=== PATIENT | male | born 1970 | race Two or more races ===

== ENCOUNTER → 2019-11-24 | Emergency (ER) | payer MEDICAID ==
[~2019-11-24] VITALS: Ht 167.6 cm; Wt 80.0 kg
[~2019-11-24] MED LIST: LIDOCAINE HCL 1% 20ML VIAL (Pyxis) INJ ONE; SODIUM BICARBONATE 4% (2.4MEQ) 5ML VIAL IV ONE
[2019-11-24 14:00] LABS: BASOPHILS % 0.6 % (0.0-2.0); EOSINOPHILS % 2.3 % (0.0-5.0); HEMATOCRIT. 29.5 % (42.0-52.0); HEMOGLOBIN. 10.3 g/dL (14.0-18.0); LYMPHOCYTES % 13.6 % (20.0-50.0); MEAN CORPUSCULAR HEMOGLOBIN 31.6 pg (28.0-32.0); MEAN CORPUSCULAR VOLUME 90.6 fL (80.0-94.0); MEAN PLATELET VOLUME 11.2 fl (7.4-10.4); MONOCYTES % 7.8 % (2.0-8.0); NEUTROPHILS % 75.7 % (40.0-76.0); PLATELET 68 x1000/uL (130-400); RED BLOOD CELL COUNT 3.26 mill/uL (4.7-6.1); RED CELL DISTRIBUTION WIDTH 15.6 % (11.6-14.6)
[2019-11-24 14:09] LABS: CHLORIDE 111 mEq/L (98-107); INR 1.2; PARTIAL THROMBOPLASTIN TIME 30.6 sec (23.4-31.0)
[2019-11-24 20:05] VITALS: BP 115/64
== END ==
LOC: ER 12:12
DX: R18.8 Other ascites (principal); K74.60 Unspecified cirrhosis of liver
CPT/HCPCS: 36415; 49083; 80053; 85025; 85610; 85730; 99285; J3490; Z7610

== ENCOUNTER 2019-12-23 11:32 | Emergency (ER) | payer MEDICAID ==
[~2019-12-23] VITALS: Ht 165.1 cm; Wt 60.0 kg
[2019-12-23 12:29] LABS: BASOPHILS % 0.6 % (0.0-2.0); EOSINOPHILS % 2.5 % (0.0-5.0); HEMATOCRIT. 28.5 % (42.0-52.0); HEMOGLOBIN. 9.8 g/dL (14.0-18.0); LYMPHOCYTES % 11.4 % (20.0-50.0); MEAN CORPUSCULAR HEMOGLOBIN 31.3 pg (28.0-32.0); MEAN CORPUSCULAR VOLUME 90.6 fL (80.0-94.0); MEAN PLATELET VOLUME 11.1 fl (7.4-10.4); MONOCYTES % 7.3 % (2.0-8.0); NEUTROPHILS % 78.2 % (40.0-76.0); PLATELET 55 x1000/uL (130-400); RED BLOOD CELL COUNT 3.14 mill/uL (4.7-6.1); RED CELL DISTRIBUTION WIDTH 14.8 % (11.6-14.6)
[2019-12-23 12:34] LABS: CHLORIDE 115 mEq/L (98-107)
[2019-12-23 12:38] LABS: INR 1.2; PARTIAL THROMBOPLASTIN TIME 31.1 sec (23.4-31.0); PROTHROMBIN TIME 12.8 sec (9.6-11.0)
[2019-12-23] MEDS ORDERED: LIDOCAINE HCL 1% 20ML VIAL (Pyxis) INJ ONE (13:24)
[2019-12-23] MEDS ORDERED: SODIUM BICARBONATE 4% (2.4MEQ) 5ML VIAL IV ONE (13:25)
[2019-12-23 15:41] LABS: CLARITY URINE CLOUDY (CLEAR); COLOR URINE DARK YELLOW (YELLOW); KETONES URINE NEGATIVE (NEGATIVE); LEUKOCYTE ESTERASE URINE 3+ (NEGATIVE); NITRITE URINE NEGATIVE (NEGATIVE); OCCULT BLOOD URINE 1+ (NEGATIVE); PH URINE 6.5 (4.5-8.0); PROTEIN URINE TRACE (NEGATIVE); SPECIFIC GRAVITY URINE 1.011 (1.005-1.030)
[2019-12-23] MEDS ORDERED: LEVOFLOXACIN 250MG TABLET PO ONE (17:30)
[2019-12-23 20:00] VITALS: BP 136/80
== END 2019-12-23 20:30 | disposition home or self-care (01) ==
LOC: ER 11:32
DX: N39.0 Urinary tract infection, site not specified (principal); R18.8 Other ascites; D64.9 Anemia, unspecified; F32.9 Major depressive disorder, single episode, unspecified; E11.9 Type 2 diabetes mellitus without complications; I10 Essential (primary) hypertension
CPT/HCPCS: 36415; 49083; 71045; 80053; 81003; 83690; 85025; 85610; 85730; 87077; 87086; 87186; 93005; 99285; J3490; Z7610

== ENCOUNTER 2020-03-22 11:33 | Inpatient (IN) | payer MEDICAID ==
[~2020-03-22] VITALS: Ht 162.6 cm; Wt 58.5 kg
[2020-03-22] MEDS ORDERED: ACETAMINOPHEN 325MG TABLET PO ONE (13:00)
[2020-03-22 14:02] LABS: BASOPHILS % 0.6 % (0.0-2.0); EOSINOPHILS % 1.2 % (0.0-5.0); HEMATOCRIT. 24.2 % (42.0-52.0); HEMOGLOBIN. 8.3 g/dL (14.0-18.0); LYMPHOCYTES % 12.9 % (20.0-50.0); MEAN CORPUSCULAR HEMOGLOBIN 29.6 pg (28.0-32.0); MEAN CORPUSCULAR VOLUME 86.4 fL (80.0-94.0); MONOCYTES % 7.3 % (2.0-8.0); PLATELET 57 x1000/uL (130-400); RED BLOOD CELL COUNT 2.81 mill/uL (4.7-6.1)
[2020-03-22 14:03] LABS: CHLORIDE 114 mEq/L (98-107)
[2020-03-22 14:08] LABS: INR 1.3; PARTIAL THROMBOPLASTIN TIME 33.4 sec (23.4-31.0); PROTHROMBIN TIME 13.6 sec (9.6-11.0)
[2020-03-22] MEDS ORDERED: LACTULOSE 20G/30ML UDC PO ONE (15:30)
[2020-03-22] MEDS ORDERED: FUROSEMIDE 40MG/4ML VIAL IVP ONE (15:30)
[2020-03-22] MEDS ORDERED: LEVOFLOXACIN 750MG PREMIX 150 ML IV ONE (16:15)
[2020-03-22 17:15] LABS: CLARITY URINE CLOUDY (CLEAR); COLOR URINE DARK YELLOW (YELLOW); KETONES URINE NEGATIVE (NEGATIVE); LEUKOCYTE ESTERASE URINE 1+ (NEGATIVE); NITRITE URINE POSITIVE (NEGATIVE); OCCULT BLOOD URINE TRACE (NEGATIVE); PH URINE 6.5 (4.5-8.0); PROTEIN URINE NEGATIVE (NEGATIVE); SPECIFIC GRAVITY URINE 1.012 (1.005-1.030)
[2020-03-22] MEDS ORDERED: ONDANSETRON HCL 4MG/2ML INJ IV PRN (18:45)
[2020-03-22 19:30] LABS: TOTAL IRON BINDING CAPACITY 294 ug/dL (250-450)
[2020-03-22 21:00] VITALS: BP 118/86
[2020-03-22] MEDS ORDERED: CEFTRIAXONE 1 G PREMIX 50 ML IV SCH (21:00)
[2020-03-22 22:00] VITALS: BP 118/86
[2020-03-22] MEDS: LACTULOSE 20G/30ML UDC PO SCH ×2 (22:00→22:23)
[2020-03-23] VITALS: BP 111/70
[2020-03-23] MEDS: CEFTRIAXONE 1 G PREMIX 50 ML IV SCH (00:43)
[2020-03-23 04:00] VITALS: BP 136/91
[2020-03-23] MEDS: LACTULOSE 20G/30ML UDC PO SCH ×4 (05:26→15:33)
[2020-03-23 07:38] LABS: BASOPHILS % 0.4 % (0.0-2.0); EOSINOPHILS % 1.4 % (0.0-5.0); HEMATOCRIT. 22.2 % (42.0-52.0); HEMOGLOBIN. 7.5 g/dL (14.0-18.0); LYMPHOCYTES % 17.1 % (20.0-50.0); MEAN CORPUSCULAR HEMOGLOBIN 29.1 pg (28.0-32.0); MEAN CORPUSCULAR VOLUME 85.5 fL (80.0-94.0); MEAN PLATELET VOLUME 11.5 fl (7.4-10.4); MONOCYTES % 8.7 % (2.0-8.0); NEUTROPHILS % 72.4 % (40.0-76.0); RED CELL DISTRIBUTION WIDTH 15.9 % (11.6-14.6)
[2020-03-23 07:49] LABS: CHLORIDE 115 mEq/L (98-107)
[2020-03-23 08:00] VITALS: BP 112/77
[2020-03-23 08:14] LABS: PLATELET 45 x1000/uL (130-400)
[2020-03-23] MEDS: FUROSEMIDE 40MG/4ML VIAL IVP SCH (09:33)
[2020-03-23 10:40] LABS: PLATELET ESTIMATE MARKEDLY DECREASED
[2020-03-23 12:00] VITALS: BP 120/81
[2020-03-23 16:00] VITALS: BP 123/78
[2020-03-23] MEDS: ALBUTEROL 6.7GM HFA INHALER ORI SCH (18:46)
[2020-03-23 20:00] VITALS: BP 128/87
[2020-03-24] VITALS: BP 117/76
[2020-03-24] MEDS: LACTULOSE 20G/30ML UDC PO SCH ×4 (00:26→20:34)
[2020-03-24] MEDS: ALBUTEROL 6.7GM HFA INHALER ORI SCH ×3 (00:26→13:49)
[2020-03-24] MEDS: GUAIFENESIN 600MG ER TABLET PO SCH ×3 (00:26→20:34)
[2020-03-24] MEDS: CEFTRIAXONE 1 G PREMIX 50 ML IV SCH (00:26)
[2020-03-24 04:00] VITALS: BP 122/93
[2020-03-24 06:52] LABS: CHLORIDE 114 mEq/L (98-107)
[2020-03-24 07:01] LABS: BASOPHILS % 0.4 % (0.0-2.0); EOSINOPHILS % 1.2 % (0.0-5.0); HEMATOCRIT. 23.4 % (42.0-52.0); MEAN CORPUSCULAR HEMOGLOBIN 29.7 pg (28.0-32.0); MEAN CORPUSCULAR VOLUME 86.4 fL (80.0-94.0); MEAN PLATELET VOLUME 10.9 fl (7.4-10.4); MONOCYTES % 8.6 % (2.0-8.0); NEUTROPHILS % 74.8 % (40.0-76.0); RED BLOOD CELL COUNT 2.71 mill/uL (4.7-6.1); RED CELL DISTRIBUTION WIDTH 15.9 % (11.6-14.6)
[2020-03-24 07:06] LABS: PLATELET 46 x1000/uL (130-400)
[2020-03-24 07:14] LABS: INR 1.3; PROTHROMBIN TIME 14.4 sec (9.6-11.0)
[2020-03-24 08:00] VITALS: BP 110/71
[2020-03-24] MEDS: FUROSEMIDE 40MG/4ML VIAL IVP SCH (10:16)
[2020-03-24 12:00] VITALS: BP 139/83
[2020-03-24 16:00] VITALS: BP 120/79
[2020-03-24] MEDS ORDERED: AZITHROMYCIN 500 MG TABLET PO NR (18:30)
[2020-03-24 20:00] VITALS: BP 120/73
[2020-03-24] MEDS: RIFAXIMIN 550 MG TABLET PO SCH (20:34)
[2020-03-24] MEDS: MEROPENEM 1,000 MG in SODIUM CHLORIDE 0.9% 100 ML IV SCH (20:34)
[2020-03-25] VITALS (7 sets, daily range): BP systolic 113–138; BP diastolic 75–79
[2020-03-25] MEDS: MEROPENEM 1,000 MG in SODIUM CHLORIDE 0.9% 100 ML IV SCH ×3 (03:11→21:55)
[2020-03-25] MEDS: LACTULOSE 20G/30ML UDC PO SCH ×3 (06:00→21:55)
[2020-03-25] MEDS: ALBUTEROL 6.7GM HFA INHALER ORI SCH ×5 (06:00→23:37)
[2020-03-25 08:45] LABS: CHLORIDE 113 mEq/L (98-107)
[2020-03-25] MEDS: FUROSEMIDE 40MG/4ML VIAL IVP SCH (08:53)
[2020-03-25] MEDS: GUAIFENESIN 600MG ER TABLET PO SCH ×2 (08:53→21:55)
[2020-03-25] MEDS: RIFAXIMIN 550 MG TABLET PO SCH ×2 (08:54→21:55)
[2020-03-25 09:05] LABS: BASOPHILS % 0.3 % (0.0-2.0); EOSINOPHILS % 1.7 % (0.0-5.0); HEMATOCRIT. 22.4 % (42.0-52.0); HEMOGLOBIN. 7.7 g/dL (14.0-18.0); MEAN CORPUSCULAR HEMOGLOBIN 29.1 pg (28.0-32.0); MEAN CORPUSCULAR VOLUME 84.8 fL (80.0-94.0); MEAN PLATELET VOLUME 11.3 fl (7.4-10.4); MONOCYTES % 9.5 % (2.0-8.0); NEUTROPHILS % 72.5 % (40.0-76.0); PLATELET 51 x1000/uL (130-400); RED BLOOD CELL COUNT 2.65 mill/uL (4.7-6.1); RED CELL DISTRIBUTION WIDTH 15.3 % (11.6-14.6)
[2020-03-25] MEDS ORDERED: LIDOCAINE HCL 1% 20ML VIAL (Pyxis) INJ ONE (13:14)
[2020-03-25] MEDS ORDERED: SODIUM BICARBONATE 4% (2.4MEQ) 5ML VIAL IV ONE (13:14)
[2020-03-25] MEDS: LACTULOSE 300 ML in WATER FOR IRRIGATION,STERILE 700 ML IR SCH (14:30)
[2020-03-25] MEDS ORDERED: POTASSIUM CHLORIDE 20MEQ TABLET SR PO NR (15:00)
[2020-03-25] MEDS: AZITHROMYCIN 250 MG TABLET PO SCH (16:04)
[2020-03-26] VITALS (7 sets, daily range): BP systolic 107–128; BP diastolic 64–82
[2020-03-26] MEDS: MEROPENEM 1,000 MG in SODIUM CHLORIDE 0.9% 100 ML IV SCH ×3 (03:22→20:53)
[2020-03-26] MEDS: ALBUTEROL 6.7GM HFA INHALER ORI SCH ×3 (05:26→17:59)
[2020-03-26] MEDS: LACTULOSE 20G/30ML UDC PO SCH ×4 (05:27→21:35)
[2020-03-26 05:36] LABS: CHLORIDE 112 mEq/L (98-107)
[2020-03-26 06:14] LABS: BASOPHILS % 0.4 % (0.0-2.0); EOSINOPHILS % 1.3 % (0.0-5.0); HEMATOCRIT. 22.6 % (42.0-52.0); HEMOGLOBIN. 7.7 g/dL (14.0-18.0); LYMPHOCYTES % 15.6 % (20.0-50.0); MEAN CORPUSCULAR HEMOGLOBIN 29.1 pg (28.0-32.0); MEAN CORPUSCULAR VOLUME 85.8 fL (80.0-94.0); MEAN PLATELET VOLUME 11.5 fl (7.4-10.4); MONOCYTES % 8.5 % (2.0-8.0); NEUTROPHILS % 74.2 % (40.0-76.0); RED BLOOD CELL COUNT 2.64 mill/uL (4.7-6.1); RED CELL DISTRIBUTION WIDTH 15.7 % (11.6-14.6)
[2020-03-26 06:32] LABS: PLATELET 48 x1000/uL (130-400)
[2020-03-26] MEDS: GUAIFENESIN 600MG ER TABLET PO SCH ×2 (09:00→21:25)
[2020-03-26] MEDS: RIFAXIMIN 550 MG TABLET PO SCH ×2 (09:32→21:25)
[2020-03-26] MEDS: FUROSEMIDE 40MG/4ML VIAL IVP SCH (09:32)
[2020-03-26] MEDS: ACETAMINOPHEN 325MG TABLET PO PRN ×2 (12:59→21:25)
[2020-03-26 13:12] LABS: PLATELET ESTIMATE MARKEDLY DECREASED
[2020-03-26] MEDS: ALBUMIN HUMAN 12.5GM/50ML (25%) IV SCH ×2 (15:05→21:25)
[2020-03-26] MEDS: AZITHROMYCIN 250 MG TABLET PO SCH (16:37)
[2020-03-27] VITALS: BP 120/88
[2020-03-27] MEDS: ALBUTEROL 6.7GM HFA INHALER ORI SCH ×4 (00:56→17:15)
[2020-03-27] MEDS: ALBUMIN HUMAN 12.5GM/50ML (25%) IV SCH ×2 (03:47→08:46)
[2020-03-27] MEDS: MEROPENEM 1,000 MG in SODIUM CHLORIDE 0.9% 100 ML IV SCH ×3 (03:48→21:16)
[2020-03-27 04:00] VITALS: BP 111/67
[2020-03-27 08:01] LABS: BASOPHILS % 0.4 % (0.0-2.0); EOSINOPHILS % 1.6 % (0.0-5.0); HEMATOCRIT. 23.2 % (42.0-52.0); HEMOGLOBIN. 7.9 g/dL (14.0-18.0); LYMPHOCYTES % 9.4 % (20.0-50.0); MEAN CORPUSCULAR HEMOGLOBIN 28.9 pg (28.0-32.0); MEAN CORPUSCULAR VOLUME 85.2 fL (80.0-94.0); MEAN PLATELET VOLUME 11.2 fl (7.4-10.4); MONOCYTES % 7.5 % (2.0-8.0); NEUTROPHILS % 81.1 % (40.0-76.0); RED BLOOD CELL COUNT 2.72 mill/uL (4.7-6.1); RED CELL DISTRIBUTION WIDTH 16.1 % (11.6-14.6)
[2020-03-27 08:13] LABS: INR 1.4; PROTHROMBIN TIME 15.5 sec (9.6-11.0)
[2020-03-27 08:21] VITALS: BP 104/68
[2020-03-27] MEDS: FUROSEMIDE 40MG/4ML VIAL IVP SCH (10:12)
[2020-03-27] MEDS: RIFAXIMIN 550 MG TABLET PO SCH ×2 (10:12→21:16)
[2020-03-27] MEDS: GUAIFENESIN 600MG ER TABLET PO SCH ×2 (10:13→21:16)
[2020-03-27 12:16] VITALS: BP 116/76
[2020-03-27] MEDS: LACTULOSE 20G/30ML UDC PO SCH ×3 (13:30→22:00)
[2020-03-27 16:00] VITALS: BP 116/78
[2020-03-27] MEDS: AZITHROMYCIN 250 MG TABLET PO SCH (17:13)
[2020-03-27] MEDS: ACETAMINOPHEN 325MG TABLET PO PRN (17:13)
[2020-03-27 20:00] VITALS: BP 105/63
[2020-03-28] VITALS: BP 108/68
[2020-03-28 04:00] VITALS: BP 118/88
[2020-03-28] MEDS: LACTULOSE 20G/30ML UDC PO SCH ×3 (06:39→22:31)
[2020-03-28] MEDS: MEROPENEM 1,000 MG in SODIUM CHLORIDE 0.9% 100 ML IV SCH ×3 (06:39→20:00)
[2020-03-28 07:29] LABS: HEMATOCRIT. 22.9 % (42.0-52.0); HEMOGLOBIN. 7.8 g/dL (14.0-18.0); MEAN CORPUSCULAR HEMOGLOBIN 29.2 pg (28.0-32.0); MEAN CORPUSCULAR VOLUME 85.5 fL (80.0-94.0); MEAN PLATELET VOLUME 11.4 fl (7.4-10.4); RED BLOOD CELL COUNT 2.69 mill/uL (4.7-6.1); RED CELL DISTRIBUTION WIDTH 16.2 % (11.6-14.6)
[2020-03-28 07:50] VITALS: BP 113/68
[2020-03-28 08:05] LABS: PLATELET 39 x1000/uL (130-400)
[2020-03-28] MEDS: GUAIFENESIN 600MG ER TABLET PO SCH ×2 (08:08→20:00)
[2020-03-28] MEDS: RIFAXIMIN 550 MG TABLET PO SCH ×2 (08:08→20:00)
[2020-03-28] MEDS: FUROSEMIDE 40MG/4ML VIAL IVP SCH (08:08)
[2020-03-28 11:50] VITALS: BP 125/65
[2020-03-28 16:00] VITALS: BP 113/80
[2020-03-28] MEDS: ACETAMINOPHEN 325MG TABLET PO PRN ×2 (17:17→20:00)
[2020-03-28] MEDS: AZITHROMYCIN 250 MG TABLET PO SCH (17:17)
[2020-03-28 20:00] VITALS: BP 92/61
[2020-03-29] VITALS (8 sets, daily range): BP systolic 91–165; BP diastolic 50–90
[2020-03-29] MEDS: ALBUTEROL 6.7GM HFA INHALER ORI SCH ×5 (00:24→17:58)
[2020-03-29] MEDS: MEROPENEM 1,000 MG in SODIUM CHLORIDE 0.9% 100 ML IV SCH ×3 (03:41→21:42)
[2020-03-29] MEDS: LACTULOSE 20G/30ML UDC PO SCH ×5 (05:18→21:44)
[2020-03-29 05:22] LABS: HEMATOCRIT. 21.7 % (42.0-52.0); HEMOGLOBIN. 7.4 g/dL (14.0-18.0); MEAN CORPUSCULAR HEMOGLOBIN 28.9 pg (28.0-32.0); MEAN CORPUSCULAR VOLUME 84.8 fL (80.0-94.0); MEAN PLATELET VOLUME 11.5 fl (7.4-10.4); RED BLOOD CELL COUNT 2.55 mill/uL (4.7-6.1); RED CELL DISTRIBUTION WIDTH 15.9 % (11.6-14.6)
[2020-03-29 07:24] LABS: PLATELET ESTIMATE MARKEDLY DECREASED
[2020-03-29 08:00] LABS: PLATELET 36 x1000/uL (130-400)
[2020-03-29] MEDS: GUAIFENESIN 600MG ER TABLET PO SCH ×2 (09:21→21:42)
[2020-03-29] MEDS: RIFAXIMIN 550 MG TABLET PO SCH ×2 (09:21→21:44)
[2020-03-29] MEDS: FUROSEMIDE 40MG/4ML VIAL IVP SCH (09:21)
[2020-03-29 10:12] LABS: PLATELET 41 x1000/uL (130-400)
[2020-03-29 13:22] LABS: PLATELET ESTIMATE MARKEDLY DECREASED
[2020-03-29] MEDS: ACETAMINOPHEN 325MG TABLET PO PRN (17:58)
[2020-03-30] VITALS: BP 105/60
[2020-03-30] MEDS: ALBUTEROL 6.7GM HFA INHALER ORI SCH ×5 (00:36→23:55)
[2020-03-30 04:00] VITALS: BP 99/50
[2020-03-30] MEDS: LACTULOSE 20G/30ML UDC PO SCH ×6 (05:19→21:59)
[2020-03-30 08:00] VITALS: BP 137/86
[2020-03-30 08:21] LABS: HEMATOCRIT. 22.6 % (42.0-52.0); HEMOGLOBIN. 7.8 g/dL (14.0-18.0); MEAN CORPUSCULAR HEMOGLOBIN 29.1 pg (28.0-32.0); MEAN CORPUSCULAR VOLUME 84.7 fL (80.0-94.0); MEAN PLATELET VOLUME 11.9 fl (7.4-10.4); RED BLOOD CELL COUNT 2.67 mill/uL (4.7-6.1); RED CELL DISTRIBUTION WIDTH 16.1 % (11.6-14.6)
[2020-03-30] MEDS: GUAIFENESIN 600MG ER TABLET PO SCH ×2 (08:24→21:21)
[2020-03-30] MEDS: RIFAXIMIN 550 MG TABLET PO SCH ×2 (08:24→21:21)
[2020-03-30] MEDS: FUROSEMIDE 40MG/4ML VIAL IVP SCH (08:24)
[2020-03-30 09:03] LABS: PLATELET 38 x1000/uL (130-400)
[2020-03-30 12:00] VITALS: BP 98/63
[2020-03-30 16:00] VITALS: BP 100/74
[2020-03-30 18:42] LABS: PLATELET ESTIMATE MARKEDLY DECREASED
[2020-03-30 20:00] VITALS: BP 110/69
[2020-03-31] VITALS: BP 106/67
[2020-03-31 04:00] VITALS: BP 104/72
[2020-03-31] MEDS: LACTULOSE 20G/30ML UDC PO SCH ×4 (05:33→19:30)
[2020-03-31] MEDS: ALBUTEROL 6.7GM HFA INHALER ORI SCH ×4 (05:33→18:26)
[2020-03-31 08:00] VITALS: BP 102/70
[2020-03-31] MEDS: GUAIFENESIN 600MG ER TABLET PO SCH ×2 (09:09→22:14)
[2020-03-31] MEDS: RIFAXIMIN 550 MG TABLET PO SCH ×2 (09:09→22:16)
[2020-03-31] MEDS: FUROSEMIDE 40MG/4ML VIAL IVP SCH (09:58)
[2020-03-31 12:00] VITALS: BP 99/66
[2020-03-31 16:00] VITALS: BP 103/76
[2020-03-31 20:00] VITALS: BP 114/72
[2020-04-01] VITALS: BP 106/67
[2020-04-01 08:00] VITALS: BP 111/70
[2020-04-01 08:19] LABS: HEMATOCRIT. 23.8 % (42.0-52.0); MEAN CORPUSCULAR HEMOGLOBIN 28.7 pg (28.0-32.0); MEAN CORPUSCULAR VOLUME 85.6 fL (80.0-94.0); RED BLOOD CELL COUNT 2.77 mill/uL (4.7-6.1); RED CELL DISTRIBUTION WIDTH 16.3 % (11.6-14.6)
[2020-04-01 09:26] LABS: INR 1.2
[2020-04-01 10:02] LABS: PLATELET 44 x1000/uL (130-400)
[2020-04-01] MEDS: GUAIFENESIN 600MG ER TABLET PO SCH ×2 (10:06→21:49)
[2020-04-01] MEDS: FUROSEMIDE 40MG/4ML VIAL IVP SCH (10:06)
[2020-04-01] MEDS: RIFAXIMIN 550 MG TABLET PO SCH ×2 (10:06→21:49)
[2020-04-01 12:00] VITALS: BP 118/69
[2020-04-01] MEDS: LACTULOSE 20G/30ML UDC PO SCH ×5 (12:00→23:49)
[2020-04-01] MEDS: ALBUTEROL 6.7GM HFA INHALER ORI SCH ×4 (12:35→23:49)
[2020-04-01 16:00] VITALS: BP 106/73
[2020-04-01 20:00] VITALS: BP 89/53
[2020-04-01 20:08] LABS: PLATELET ESTIMATE MARKEDLY DECREASED
[2020-04-02] VITALS: BP 111/69
[2020-04-02 04:00] VITALS: BP 111/72
[2020-04-02] MEDS: ALBUTEROL 6.7GM HFA INHALER ORI SCH ×3 (05:13→17:01)
[2020-04-02] MEDS: LACTULOSE 20G/30ML UDC PO SCH ×3 (05:13→17:01)
[2020-04-02 08:01] VITALS: BP 116/68
[2020-04-02] MEDS: FUROSEMIDE 40MG/4ML VIAL IVP SCH (09:00)
[2020-04-02] MEDS: RIFAXIMIN 550 MG TABLET PO SCH ×2 (09:11→22:03)
[2020-04-02] MEDS: GUAIFENESIN 600MG ER TABLET PO SCH ×2 (09:11→22:03)
[2020-04-02 11:36] VITALS: BP 108/75
[2020-04-02] MEDS ORDERED: PHYTONADIONE 10MG/ML AMP SUBCUT SCH (13:30)
[2020-04-02 15:50] VITALS: BP 112/72
[2020-04-03] VITALS: BP 118/75
[2020-04-03 04:00] VITALS: BP 116/76
[2020-04-03] MEDS: LACTULOSE 20G/30ML UDC PO SCH ×5 (06:00→23:10)
[2020-04-03] MEDS: ALBUTEROL 6.7GM HFA INHALER ORI SCH ×5 (06:00→23:09)
[2020-04-03 07:00] LABS: INR 1.3; PROTHROMBIN TIME 13.3 sec (9.6-11.0)
[2020-04-03 07:15] LABS: HEMATOCRIT. 22.4 % (42.0-52.0); HEMOGLOBIN. 7.6 g/dL (14.0-18.0); MEAN CORPUSCULAR HEMOGLOBIN 28.6 pg (28.0-32.0); MEAN CORPUSCULAR VOLUME 84.3 fL (80.0-94.0); MEAN PLATELET VOLUME 12.2 fl (7.4-10.4); RED BLOOD CELL COUNT 2.66 mill/uL (4.7-6.1); RED CELL DISTRIBUTION WIDTH 15.9 % (11.6-14.6)
[2020-04-03 08:00] VITALS: BP 111/80
[2020-04-03] MEDS: FUROSEMIDE 40MG/4ML VIAL IVP SCH (08:09)
[2020-04-03] MEDS: GUAIFENESIN 600MG ER TABLET PO SCH ×2 (08:09→21:17)
[2020-04-03] MEDS: RIFAXIMIN 550 MG TABLET PO SCH ×2 (08:09→21:17)
[2020-04-03 08:29] LABS: PLATELET 47 x1000/uL (130-400)
[2020-04-03] MEDS: SPIRONOLACTONE 50MG TABLET PO SCH (10:06)
[2020-04-03 10:45] LABS: CHLORIDE 109 mEq/L (98-107)
[2020-04-03 12:00] VITALS: BP 109/69
[2020-04-03 12:57] LABS: NUCLEATED RED BLOOD CELLS 1 /100 WBC
[2020-04-03 12:58] LABS: PLATELET ESTIMATE MARKEDLY DECREASED
[2020-04-03 16:00] VITALS: BP 110/74
[2020-04-03 20:00] VITALS: BP 116/78
[2020-04-03 22:06] LABS: MEAN CORPUSCULAR HEMOGLOBIN 28.3 pg (28.0-32.0); MEAN CORPUSCULAR VOLUME 85.1 fL (80.0-94.0); RED BLOOD CELL COUNT 2.42 mill/uL (4.7-6.1); RED CELL DISTRIBUTION WIDTH 15.3 % (11.6-14.6)
[2020-04-03 22:13] LABS: HEMATOCRIT 20.6 % (42.0-52.0); HEMOGLOBIN 6.9 g/dL (14.0-18.0)
[2020-04-03 22:14] LABS: PLATELET 47 x1000/uL (130-400)
[2020-04-03 22:15] LABS: INR 1.3; PROTHROMBIN TIME 13.4 sec (9.6-11.0)
[2020-04-04] VITALS (10 sets, daily range): BP systolic 101–134; BP diastolic 57–86
[2020-04-04] MEDS: ALBUTEROL 6.7GM HFA INHALER ORI SCH ×3 (04:57→23:13)
[2020-04-04] MEDS: LACTULOSE 20G/30ML UDC PO SCH ×4 (06:00→23:27)
[2020-04-04 06:14] LABS: HEMATOCRIT. 21.7 % (42.0-52.0); HEMOGLOBIN. 7.3 g/dL (14.0-18.0); MEAN CORPUSCULAR HEMOGLOBIN 28.7 pg (28.0-32.0); MEAN CORPUSCULAR VOLUME 85.1 fL (80.0-94.0); MEAN PLATELET VOLUME 11.9 fl (7.4-10.4); RED BLOOD CELL COUNT 2.56 mill/uL (4.7-6.1); RED CELL DISTRIBUTION WIDTH 15.6 % (11.6-14.6)
[2020-04-04 06:36] LABS: PLATELET 48 x1000/uL (130-400)
[2020-04-04] MEDS ORDERED: SODIUM BICARBONATE 4% (2.4MEQ) 5ML VIAL IV ONE (07:53)
[2020-04-04] MEDS ORDERED: LIDOCAINE HCL 1% 20ML VIAL (Pyxis) INJ ONE (07:53)
[2020-04-04] MEDS: RIFAXIMIN 550 MG TABLET PO SCH ×2 (09:13→20:40)
[2020-04-04] MEDS: FUROSEMIDE 40MG/4ML VIAL IVP SCH (09:13)
[2020-04-04] MEDS: ACETAMINOPHEN 325MG TABLET PO PRN (09:13)
[2020-04-04] MEDS: GUAIFENESIN 600MG ER TABLET PO SCH ×2 (09:13→20:40)
[2020-04-04] MEDS: SPIRONOLACTONE 50MG TABLET PO SCH (09:13)
[2020-04-04 13:29] LABS: PLATELET ESTIMATE MARKEDLY DECREASED
[2020-04-04] MEDS ORDERED: FILGRASTIM-TBO 300 MCG/0.5 ML SYRINGE SQ SCH (23:00)
[2020-04-05] VITALS: BP 96/62
[2020-04-05 04:00] VITALS: BP 100/65
[2020-04-05] MEDS: ALBUTEROL 6.7GM HFA INHALER ORI SCH ×4 (05:11→21:26)
[2020-04-05] MEDS: LACTULOSE 20G/30ML UDC PO SCH ×4 (05:42→21:26)
[2020-04-05 07:27] LABS: BASOPHILS % 0.4 % (0.0-2.0); EOSINOPHILS % 1.3 % (0.0-5.0); HEMATOCRIT. 22.8 % (42.0-52.0); HEMOGLOBIN. 7.7 g/dL (14.0-18.0); LYMPHOCYTES % 8.8 % (20.0-50.0); MEAN CORPUSCULAR HEMOGLOBIN 28.9 pg (28.0-32.0); MEAN CORPUSCULAR VOLUME 85.7 fL (80.0-94.0); MONOCYTES % 7.3 % (2.0-8.0); NEUTROPHILS % 82.2 % (40.0-76.0); PLATELET 53 x1000/uL (130-400); RED BLOOD CELL COUNT 2.66 mill/uL (4.7-6.1); RED CELL DISTRIBUTION WIDTH 15.4 % (11.6-14.6)
[2020-04-05 08:00] VITALS: BP 90/60
[2020-04-05] MEDS: RIFAXIMIN 550 MG TABLET PO SCH ×2 (10:35→21:26)
[2020-04-05] MEDS: GUAIFENESIN 600MG ER TABLET PO SCH ×2 (10:35→21:26)
[2020-04-05] MEDS: FUROSEMIDE 40MG TABLET PO SCH (10:36)
[2020-04-05] MEDS: SPIRONOLACTONE 50MG TABLET PO SCH (10:36)
[2020-04-05 12:00] VITALS: BP 100/62
[2020-04-05 16:00] VITALS: BP 101/67
[2020-04-05] MEDS: MIDODRINE HCL 5MG TABLET PO SCH (17:33)
[2020-04-05 19:02] LABS: HEPATITIS B SURFACE ANTIGEN NEGATIVE
[2020-04-05 19:32] LABS: HEPATITIS A AB IGM NEGATIVE (NEGATIVE)
[2020-04-05 20:37] VITALS: BP 121/69
[2020-04-06] VITALS: BP 90/53
[2020-04-06] MEDS: ACETAMINOPHEN 325MG TABLET PO PRN (03:52)
[2020-04-06 04:00] VITALS: BP 95/33
[2020-04-06] MEDS: ALBUTEROL 6.7GM HFA INHALER ORI SCH ×4 (05:11→23:59)
[2020-04-06] MEDS: LACTULOSE 20G/30ML UDC PO SCH ×4 (05:11→23:58)
[2020-04-06 06:02] LABS: BASOPHILS % 0.6 % (0.0-2.0); EOSINOPHILS % 1.1 % (0.0-5.0); HEMATOCRIT. 23.9 % (42.0-52.0); LYMPHOCYTES % 8.2 % (20.0-50.0); MEAN CORPUSCULAR HEMOGLOBIN 28.6 pg (28.0-32.0); MEAN CORPUSCULAR VOLUME 85.8 fL (80.0-94.0); MONOCYTES % 4.7 % (2.0-8.0); NEUTROPHILS % 85.4 % (40.0-76.0); PLATELET 57 x1000/uL (130-400); RED BLOOD CELL COUNT 2.79 mill/uL (4.7-6.1); RED CELL DISTRIBUTION WIDTH 15.9 % (11.6-14.6)
[2020-04-06 08:00] VITALS: BP 109/66
[2020-04-06] MEDS: RIFAXIMIN 550 MG TABLET PO SCH ×2 (09:22→21:08)
[2020-04-06] MEDS: GUAIFENESIN 600MG ER TABLET PO SCH ×2 (09:22→21:08)
[2020-04-06] MEDS: SPIRONOLACTONE 50MG TABLET PO SCH (09:22)
[2020-04-06] MEDS: FUROSEMIDE 40MG TABLET PO SCH (09:22)
[2020-04-06] MEDS: MIDODRINE HCL 5MG TABLET PO SCH ×3 (09:23→18:12)
[2020-04-06 12:00] VITALS: BP 110/74
[2020-04-06 16:00] VITALS: BP 125/74
[2020-04-06 20:00] VITALS: BP 113/70
[2020-04-07] VITALS: BP 103/62
[2020-04-07 04:00] VITALS: BP 105/63
[2020-04-07] MEDS: LACTULOSE 20G/30ML UDC PO SCH ×3 (05:57→17:00)
[2020-04-07] MEDS: ALBUTEROL 6.7GM HFA INHALER ORI SCH ×3 (05:58→18:00)
[2020-04-07 08:00] VITALS: BP 107/70
[2020-04-07] MEDS: RIFAXIMIN 550 MG TABLET PO SCH ×3 (09:23→21:07)
[2020-04-07] MEDS: MIDODRINE HCL 5MG TABLET PO SCH ×3 (09:23→18:50)
[2020-04-07] MEDS: SPIRONOLACTONE 50MG TABLET PO SCH (09:24)
[2020-04-07] MEDS: GUAIFENESIN 600MG ER TABLET PO SCH ×3 (09:24→21:07)
[2020-04-07] MEDS: FUROSEMIDE 40MG TABLET PO SCH (09:24)
[2020-04-07] MEDS ORDERED: BISACODYL 10MG SUPP PR NR (11:30)
[2020-04-07 12:00] VITALS: BP 111/69
[2020-04-07 16:00] VITALS: BP 129/75
[2020-04-07] MEDS: METOCLOPRAMIDE HCL 10MG/2ML VIAL IV SCH ×2 (16:41→18:50)
[2020-04-07 20:00] VITALS: BP 117/65
[2020-04-08] VITALS: BP 99/61
[2020-04-08] MEDS: METOCLOPRAMIDE HCL 10MG/2ML VIAL IV SCH ×4 (00:31→16:52)
[2020-04-08] MEDS: ALBUTEROL 6.7GM HFA INHALER ORI SCH ×3 (00:33→12:00)
[2020-04-08 04:00] VITALS: BP 100/58
[2020-04-08 08:00] VITALS: BP 99/61
[2020-04-08] MEDS: LACTULOSE 20G/30ML UDC PO SCH ×3 (09:00→16:51)
[2020-04-08] MEDS: MIDODRINE HCL 5MG TABLET PO SCH ×3 (10:34→16:52)
[2020-04-08] MEDS: GUAIFENESIN 600MG ER TABLET PO SCH ×2 (10:34→20:55)
[2020-04-08] MEDS: FUROSEMIDE 40MG TABLET PO SCH (10:35)
[2020-04-08] MEDS: RIFAXIMIN 550 MG TABLET PO SCH ×2 (10:35→20:55)
[2020-04-08] MEDS: SPIRONOLACTONE 50MG TABLET PO SCH (10:39)
[2020-04-08 12:00] VITALS: BP 116/72
[2020-04-08 16:00] VITALS: BP_SYST 109; BP_SYST 116; BP_DIAS 62; BP_DIAS 72
[2020-04-08 20:00] VITALS: BP 128/72
[2020-04-09] VITALS: BP 100/58
[2020-04-09] MEDS: METOCLOPRAMIDE HCL 10MG/2ML VIAL IV SCH ×4 (00:19→17:01)
[2020-04-09] MEDS: ALBUTEROL 6.7GM HFA INHALER ORI SCH ×4 (00:28→17:01)
[2020-04-09 04:00] VITALS: BP 95/71
[2020-04-09 08:00] VITALS: BP 114/70
[2020-04-09] MEDS: FUROSEMIDE 40MG TABLET PO SCH (08:41)
[2020-04-09] MEDS: LACTULOSE 20G/30ML UDC PO SCH ×4 (08:41→17:00)
[2020-04-09] MEDS: RIFAXIMIN 550 MG TABLET PO SCH (08:41)
[2020-04-09] MEDS: GUAIFENESIN 600MG ER TABLET PO SCH (08:41)
[2020-04-09] MEDS: SPIRONOLACTONE 50MG TABLET PO SCH (08:55)
[2020-04-09] MEDS: MIDODRINE HCL 5MG TABLET PO SCH ×3 (08:55→17:08)
[2020-04-09 12:00] VITALS: BP 114/74
[2020-04-09 14:42] VITALS: BP 114/74
[2020-04-09 16:00] VITALS: BP 142/80
== END 2020-04-09 19:28 | DRG 720 ==
LOC: ER 11:58 → EDBEDREQTM 15:29 → EDBEDREQ 15:29 → ENRESERV 19:56 → 7WST 21:45
PROVIDERS: ADMIT Internal Medicine Nephrology; ATTEND Internal Medicine Nephrology
PROC: 30233R1 Transfusion of Nonautologous Platelets into Peripheral Vein, Percutaneous Approach (ICD-10-PCS; principal; 2020-03-25)
PROC: 0W9G3ZZ Drainage of Peritoneal Cavity, Percutaneous Approach (ICD-10-PCS; 2020-03-25)
PROC: 0W9G3ZZ Drainage of Peritoneal Cavity, Percutaneous Approach (ICD-10-PCS; 2020-04-04)
DX: A41.89 Other specified sepsis (principal); U07.1 COVID-19; J96.00 Acute respiratory failure, unspecified whether with hypoxia or hypercapnia; G93.40 Encephalopathy, unspecified; E43 Unspecified severe protein-calorie malnutrition; D61.818 Other pancytopenia; E72.20 Disorder of urea cycle metabolism, unspecified; C80.0 Disseminated malignant neoplasm, unspecified; E87.8 Other disorders of electrolyte and fluid balance, not elsewhere classified; D68.9 Coagulation defect, unspecified; K76.6 Portal hypertension; E11.649 Type 2 diabetes mellitus with hypoglycemia without coma; I50.9 Heart failure, unspecified; F32.9 Major depressive disorder, single episode, unspecified; I11.0 Hypertensive heart disease with heart failure; J12.89 Other viral pneumonia; K74.60 Unspecified cirrhosis of liver; K80.20 Calculus of gallbladder without cholecystitis without obstruction; N39.0 Urinary tract infection, site not specified; R18.8 Other ascites; K40.90 Unilateral inguinal hernia, without obstruction or gangrene, not specified as recurrent; B96.89 Other specified bacterial agents as the cause of diseases classified elsewhere; B96.20 Unspecified Escherichia coli [E. coli] as the cause of diseases classified elsewhere; A41.51 Sepsis due to Escherichia coli [E. coli]; D69.59 Other secondary thrombocytopenia; N40.0 Benign prostatic hyperplasia without lower urinary tract symptoms; Z16.12 Extended spectrum beta lactamase (ESBL) resistance; N41.9 Inflammatory disease of prostate, unspecified; R16.1 Splenomegaly, not elsewhere classified; Z68.22 Body mass index [BMI] 22.0-22.9, adult
CPT/HCPCS: 36415; 49083; 71045; 71250; 74018; 74176; 80048; 80053; 80076; 81003; 82040; 82105; 82140; 82150; 82378; 82728; 82962; 83036; 83540; 83550; 83605; 83615; 83735; 83880; 84484; 85025; 85027; 86301; 86705; 86709; 86803; 86850; 86900; 86920; 86945; 87077; 87186; 87340; 88108; 88312; 93005; 99285; J0696; J1442; J1940; J1956; J2185; J2765; J3430; J3490; J7050; P9034; P9047; U0003-CS